=== PATIENT | male | born 1955 | race Hispanic/Latino ===

== ENCOUNTER 2017-05-06 12:01 | Day surgery (SDC) | payer MEDICARE ==
[2017-05-06] MEDS ORDERED: NACL 0.9% 1000 ML 1,000 ML IV SCH (13:00)
[2017-05-06] MEDS ORDERED: HURRICAINE ONE 20% TOPICAL SPRAY MM (13:20)
[2017-05-06] MEDS ORDERED: ADRENALIN ONE (13:20)
[2017-05-06] MEDS ORDERED: XYLOCAINE 2% INFILTRATI ONE (13:20)
[2017-05-06] MEDS ORDERED: LIDOCAINE VISCOUS 2% ONE (13:21)
[2017-05-06] MEDS ORDERED: DIPRIVAN 10 MG/ML IV ONE ×3 (13:22→13:23)
[2017-05-06] MEDS ORDERED: SUBLIMAZE ONE (13:23)
[2017-05-06] MEDS ORDERED: AMIDATE IV ONE (13:23)
[2017-05-06] MEDS ORDERED: VERSED ONE (13:23)
--- NOTE | 2017-05-06 13:36 | Anesthesia Day of Surgery ---
Anesthesia Day of Surgery - Day of Surgery Patient Examined: Yes Patient H&P Reviewed: Yes Patient is NPO: Yes
--- NOTE | 2017-05-06 13:39 | Anesthesia Consultation ---
Anesthesia Consult and Med Hx Date of service: 05/06/17 - Airway Anesthetic Teeth Evaluation: Poor (pt denies any loose teeth) ROM Head & Neck: Adequate (cervical fusion) Mental/Hyoid Distance: Adequate Mallampati Class: Class III Intubation Access Assessment: Probably Good - Pulmonary Exam CTA: Yes - Cardiac Exam Cardiac Exam: RRR - Pre-Operative Health Status ASA Pre-Surgery Classification: ASA3 Proposed Anesthetic Plan: MAC - Pulmonary Hx Smoking: Yes (1-09 15/2 ppd) SOB: Yes (low MET) COPD: Yes (went to ER couple of year back) Home Oxygen Therapy: Yes (O2 use at night) - Cardiovascular System Hx Hypertension: Yes Hx Heart Attack/AMI: No - Central Nervous System Hx Seizures: No CVA: No - Gastrointestinal Hx Gastroesophageal Reflux Disease: Yes (well controlled w meds) - Endocrine Hx Renal Disease: No Hx Liver Disease: No Hx Non-Insulin Dependent Diabetes: No - Other Systems Hx Alcohol Use: Yes (4 beers a day) - Additional Comments Anesthesia Medical History Comments: NAC
--- NOTE | 2017-05-06 14:42 | Procedure Note ---
Pre-op diagnosis: rt lung mass Post-op diagnosis: same Procedure: bronch with fluoro Anesthesia: MAC Surgeon: CHRISTAL RODRIGUEZ Estimated blood loss: none Pathology: list (path, cytology and culture) Specimen disposition: to lab Condition: stable Disposition: observation
[2017-05-06] MEDS ORDERED: PROVENTIL IH ONE (14:47)
--- NOTE | 2017-05-06 15:25 | History and Physical Report ---
History of Present Illness History of present illness: This is a gentleman with hx of copd still smokes with new lung mass Past History Past Medical History: COPD, hypertension Medications and Allergies Allergies Allergy/AdvReac Type Severity Reaction Status Date / Time Sulfa (Sulfonamide Allergy Intermediate Unknown Verified 05/05/17 14:57 Antibiotics) Home Medications Medication Instructions Recorded Confirmed Last Taken Type ALBUTEROL NEB's 0.083 mg INHALATION PRN PRN 05/05/17 05/06/17 05/06/17 12:30 History Prednisone 1 tab PO DAILY 05/05/17 05/06/17 05/05/17 History PriLOSEC 1 tab PO DAILY 05/05/17 05/06/17 05/05/17 History Spiriva 2 puff INHALATION DAILY 05/05/17 05/06/17 05/06/17 04:00 History amLODIPine [Norvasc] 10 mg PO DAILY 05/06/17 05/06/17 05/06/17 04:00 History Active Meds: Active Medications Sodium Chloride (Nacl 0.9% 1000 Ml) 1,000 mls @ 50 mls/hr IV DIRECT BARTOLO Last Admin: 05/06/17 12:48 Dose: 50 mls/hr Review of Systems Constitutional: fatigue Respiratory: cough, cough with sputum, congestion, wheezing, respiratory infections Gastrointestinal: nausea Physical Examination Vital signs: Vital Signs Temp Pulse Resp BP Pulse Ox 97.9 F 99 H 33 H 144/81 97 05/06/17 12:32 05/06/17 12:32 05/06/17 12:32 05/06/17 12:32 05/06/17 12:32 General appearance: other (mild distress) Eyes: non-icteric ENT: oropharynx moist Neck: supple Effort: normal Ascultation: Bilateral: diminished breath sounds Cardiovascular: regular rate and rhythm Gastrointestinal: normoactive bowel sounds, soft, non-tender, non-distended Extremities: no cyanosis Gait: normal gait, normal posture Assessment and Plan - Patient Problems (1) Mass of lung Current Visit: Yes Status: Acute (2) Mass of right lung Current Visit: Yes Status: Acute (3) COPD (chronic obstructive pulmonary disease) with emphysema Current Visit: Yes Status: Acute Qualifiers: Emphysema type: E
--- NOTE | 2017-05-06 15:26 | XRay Report ---
Single view chest: History: Status post biopsy on right. Findings: Normal cardiomediastinal silhouette. Trachea is midline. No pneumothorax. Airspace opacities right lower lobe suggestive of pneumonitis. Associated partial atelectasis cannot be excluded. Minimal right pleural effusion. Left CP angle appears normal. Impression: No pneumothorax. Findings as detailed above.
[2017-05-06 15:39] VITALS: BP 108/69
--- NOTE | 2017-05-06 17:27 | Post Anesthesia Evaluation ---
- Post Anesthesia Evaluation Patient Participated: Yes Airway Patent: Yes Stable Respiratory Function: Yes Nausea/Vomiting: No Temp > 96.8F: Yes Pain Manageable: Yes Adequeate Hydration: Yes Anesthesia Complications: No
--- NOTE | 2017-05-06 21:14 | Operative Report ---
PROCEDURE: Bronchoscopy with ____. INDICATION: Right lung mass. DESCRIPTION OF PROCEDURE: With informed consent, procedure was performed. See anesthesia and nursing note in reference to vital signs and medications we used during the procedure. Via the right nares, endoscope was introduced. Upper airway was within normal limits. No edema or any lesions were noted. Some mucus was noted above the vocal cords. Vocal cord had good abduction and adduction. No endobronchial lesions were noted. Examination on the left upper and lower lobe showed no evidence of any masses. Examination of the right upper lobe was within normal limits. Right bronchus intermedius was within normal limits. There was narrowing noted in the right middle lobe. Biopsy, washing, and brushings were done. Transbronchial biopsies were done. Specimen from washing sent for C and S, and brushing sent to cytology and biopsy sent to pathology. Postprocedure, x-ray is pending. was informed of procedure, and await results. I spoke to the patient at the end of the procedure. JOB# [id number] SEBASTIAN/RICHAR
== END 2017-05-06 12:02 | disposition home or self-care (01) ==
LOC: GIO 12:01
PROVIDERS: ATTEND Specialist
DX: C34.2 Malignant neoplasm of middle lobe, bronchus or lung (principal); I10 Essential (primary) hypertension; K21.9 Gastro-esophageal reflux disease without esophagitis; J43.2 Centrilobular emphysema; F17.210 Nicotine dependence, cigarettes, uncomplicated; Z72.89 Other problems related to lifestyle; Z98.890 Other specified postprocedural states; Z98.1 Arthrodesis status; Z79.899 Other long term (current) drug therapy; Z88.2 Allergy status to sulfonamides; Z83.3 Family history of diabetes mellitus; Z82.49 Family history of ischemic heart disease and other diseases of the circulatory system; Z82.3 Family history of stroke; Z82.5 Family history of asthma and other chronic lower respiratory diseases
CPT/HCPCS: 31623; 31628; 71010; 87102; 87116; 87220; 88104; 88112; 88305; 88341; 88342; J0171; J2250; J2704; J2930; J3010; J7030